=== PATIENT | female | born 1985 | race Caucasian/White ===

== ENCOUNTER 2016-05-05 00:30 | Emergency (ER) | payer OTHER, MEDICAID ==
[2016-05-05] MEDS ORDERED: PROCHLORPERAZINE 5 MG/ML 2 ML VIAL ONE (02:41)
[2016-05-05] MEDS ORDERED: LORAZEPAM 2 MG/ML 1ML SDV ONE (02:42)
[2016-05-05 02:56] LABS: ABSOLUTE NEUTROPHIL COUNT 5.3 K/mm3 (1.8-7.7); BASO # 0.1 K/mm3 (0.0-0.2); BASO % 0.7 % (0.2-1.0); EOS # 0.4 (0.0-0.5); EOS % 3.2 % (0.9-2.9); HEMATOCRIT 45.4 % (37.0-47.0); HEMOGLOBIN 14.6 gm/l (12.0-16.0); IMM NEUT% 0.2 % (0-1); LYMPH # 5.5 (1.0-4.8); LYMPH % 45.4 % (15-45); MEAN CELL VOLUME 91.2 fl (81.0-99.0); MEAN CORPUSCULAR HEMOGLOBIN 29.3 pg (27.0-31.0); MEAN CORPUSCULAR HGB CONC 32.2 g/dl (33.0-37.0); MEAN PLATELET VOLUME 9.4 fl (7.4-10.4); MONO # 0.8 (0.0-0.8); MONO % 6.3 % (4-12); NEUT % 44.2 % (43-75); PLATELET COUNT 496 K/mm3 (130-400); RED CELL DISTRIBUTION WIDTH 14.1 % (11.5-14.5)
[2016-05-05 03:15] LABS: ALB/GLOB RATIO 1.1 (>1.0); ALBUMIN 3.9 gm/dL (3.5-5.7); CALCIUM 9.3 mg/dL (8.6-10.3)
== END 2016-05-05 03:54 | disposition home or self-care (01) ==
LOC: ED 00:30
DX: G43.909 Migraine, unspecified, not intractable, without status migrainosus (principal); R10.9 Unspecified abdominal pain; R19.7 Diarrhea, unspecified; R11.10 Vomiting, unspecified
CPT/HCPCS: 83690; 85025; 80053; 96375; 99283 ×2; 96374; J2060; J0780